=== PATIENT | male | born 1980 | race Two or more races ===

== ENCOUNTER 2022-08-23 22:35 | Inpatient (IN) | payer OTHER ==
[~2022-08-23] VITALS: Ht 182.9 cm; Wt 82.6 kg
[2022-08-23] MEDS ORDERED: LORazepam 0.5 MG TAB PO ONE (23:00)
[2022-08-23] MEDS ORDERED: ACETAMINOPHEN 325 MG TAB PO ONE (23:00)
[2022-08-23] MEDS ORDERED: KETOROLAC TROMETH 30 MG/ML 1ML VIAL IV ONE (23:00)
[2022-08-23] MEDS ORDERED: SODIUM CHLORIDE 0.9% 1,000 ML IV ONE (23:00)
[2022-08-23 23:58] LABS: Basophils # (auto) 0 10 ^3/uL (0-0.2); Basophils % (auto) 0.1 % (0.0-2.0); Eosinophils # (auto) 0 10 ^3/uL (0-0.8); Eosinophils % (auto) 0.3 % (0.0-7.0); Hematocrit 42.4 % (41.0-53.0); Hemoglobin 14.5 g/dL (13.5-17.5); Lymphocytes # (auto) 1.6 10 ^3/uL (0.4-5.4); Lymphocytes % (auto) 10.6 % (10.0-50.0); Mean Corpuscular Hemoglobin 31.1 pg (28.0-32.0); Mean Corpuscular Hgb Conc. 34.2 g/dL (32.0-36.0); Monocytes # (auto) 0.8 10 ^3/uL (0-1.3); Monocytes % (auto) 5.5 % (0.0-12.0); Neutrophils # (auto) 12.9 10 ^3/uL (1.6-8.6); Neutrophils % (auto) 83.5 % (37.0-80.0); Nucleated Red Blood Cells % 0.1 %; Red Blood Cells 4.66 10^6/uL (4.5-5.90); Red Cell Distribution Width 13.1 % (11.8-14.3); White Blood Cell 15.5 10^3/uL (4.4-10.8)
[2022-08-24] MEDS ORDERED: IOHEXOL 350 MG/ML 100ML IJ ONE
[2022-08-24 00:07] LABS: Albumin 3.1 g/dL (3.4-5.0); BUN/Creatinine Ratio 11.9 (10.0-20.0); Calcium 8.7 mg/dL (8.5-10.1); Potassium 3.8 mmol/L (3.5-5.1)
[2022-08-24 00:10] LABS: Bilirubin, Total 0.4 mg/dL (0.2-1.0); Total Protein 6.5 g/dL (6.4-8.2)
[2022-08-24 01:59] LABS: Urine Bacteria NONE SEEN /hpf (None Seen); Urine Blood Negative /uL (Negative); Urine Specific Gravity 1.025 (1.001-1.035); Urine WBC 1 /hpf (0 - 3)
[2022-08-24] MEDS ORDERED: MORPHINE SULFATE 4 MG/ML SYR/VIAL IV ONE (02:15)
[2022-08-24] MEDS ORDERED: ONDANSETRON HCL 4 MG/2 ML VIAL IV ONE (02:15)
[2022-08-24 02:23] LABS: Alcohol, Urine < 3.0 mg/dL (0-10); Amphetamine Screen, Urine NEGATIVE (NEGATIVE); Barbiturate Scree,Urine NEGATIVE (NEGATIVE); Benzodiazephine Screen, Urine NEGATIVE (NEGATIVE); Cannabinoid Screen, Urine NEGATIVE (NEGATIVE); Cocaine Screen, Urine NEGATIVE (NEGATIVE); Opiate Scree,Urine NEGATIVE (NEGATIVE); Phencyclidine Screen, Urine NEGATIVE (NEGATIVE)
[2022-08-24] MEDS ORDERED: MORPHINE SULFATE INJ 2 MG/ml SYRG IV ONE (05:15)
[2022-08-24] MEDS ORDERED: LIDOCAINE 1% HCL (LOCAL ANESTH.) INJ 20ML MDV ID ONE (06:00)
[2022-08-24] MEDS ORDERED: HYDROmorphone HCL 2 MG/ML VL/or syr IV ONE (06:00)
[2022-08-24] MEDS ORDERED: AMOXICILLIN/CLAVUL 875 MG TAB PO ONE (06:00)
[2022-08-24] MEDS: OXYMETAZOLINE HCL 0.05 % NASAL SPRAY 15ML EACHNOSTRI ONE ×2 (06:15→06:27)
[2022-08-24] MEDS ORDERED: BENZOCAINE (DENTAL) 20 % SPRAY 60ML MT ONE (06:15)
[2022-08-24 06:34] LABS: Basophils # (auto) 0 10 ^3/uL (0-0.2); Basophils % (auto) 0.2 % (0.0-2.0); Eosinophils # (auto) 0.1 10 ^3/uL (0-0.8); Eosinophils % (auto) 0.9 % (0.0-7.0); Hemoglobin 14.8 g/dL (13.5-17.5); Lymphocytes # (auto) 2.4 10 ^3/uL (0.4-5.4); Lymphocytes % (auto) 26.4 % (10.0-50.0); Mean Corpuscular Hemoglobin 31.2 pg (28.0-32.0); Mean Corpuscular Hgb Conc. 34.3 g/dL (32.0-36.0); Mean Corpuscular Volume 90.8 fL (80.0-100.0); Monocytes # (auto) 0.9 10 ^3/uL (0-1.3); Monocytes % (auto) 10.1 % (0.0-12.0); Neutrophils # (auto) 5.6 10 ^3/uL (1.6-8.6); Neutrophils % (auto) 62.4 % (37.0-80.0); Nucleated Red Blood Cells % 0.3 %; Red Blood Cells 4.74 10^6/uL (4.5-5.90); Red Cell Distribution Width 12.8 % (11.8-14.3)
[2022-08-24] MEDS: TETANUS-DIPTH-ACEL PERTUSSIS 0.5ML SYR Tdap IM ONE ×2 (08:15→09:53)
[2022-08-24] MEDS: NAPROXEN 500 MG TAB PO SCH ×2 (09:28→21:26)
[2022-08-24] MEDS: PANTOPRAZOLE 40 MG TAB PO SCH (09:29)
[2022-08-24] MEDS: HYDROmorphone HCL 2 MG/ML VL/or syr IV PRN ×3 (09:54→20:46)
[2022-08-24 11:00] VITALS: BP 126/78
[2022-08-24 13:00] VITALS: BP_SYST 121; BP_SYST 126; BP_DIAS 78; BP_DIAS 81
[2022-08-24] MEDS: CYCLOBENZAPRINE HCL 10 MG TAB PO SCH ×2 (14:37→21:26)
[2022-08-24] MEDS: ONDANSETRON HCL 4 MG/2 ML VIAL IV PRN ×2 (14:49→20:44)
[2022-08-24 17:02] VITALS: BP 126/78
[2022-08-24 22:00] VITALS: BP 123/89
[2022-08-25] MEDS: ONDANSETRON HCL 4 MG/2 ML VIAL IV PRN ×3 (00:54→20:06)
[2022-08-25] MEDS: HYDROmorphone HCL 2 MG/ML VL/or syr IV PRN ×4 (00:56→20:08)
[2022-08-25 05:00] VITALS: BP 128/72
[2022-08-25] MEDS: CYCLOBENZAPRINE HCL 10 MG TAB PO SCH ×2 (05:31→21:36)
[2022-08-25 06:35] LABS: Basophils # (auto) 0 10 ^3/uL (0-0.2); Basophils % (auto) 0.1 % (0.0-2.0); Eosinophils # (auto) 0.1 10 ^3/uL (0-0.8); Eosinophils % (auto) 1.5 % (0.0-7.0); Hematocrit 45.7 % (41.0-53.0); Hemoglobin 15.7 g/dL (13.5-17.5); Lymphocytes # (auto) 2.1 10 ^3/uL (0.4-5.4); Lymphocytes % (auto) 22.1 % (10.0-50.0); Mean Corpuscular Hgb Conc. 34.3 g/dL (32.0-36.0); Mean Corpuscular Volume 90.4 fL (80.0-100.0); Monocytes # (auto) 0.8 10 ^3/uL (0-1.3); Monocytes % (auto) 8.4 % (0.0-12.0); Neutrophils # (auto) 6.5 10 ^3/uL (1.6-8.6); Neutrophils % (auto) 67.9 % (37.0-80.0); Nucleated Red Blood Cells % 0.1 %; Red Blood Cells 5.06 10^6/uL (4.5-5.90); Red Cell Distribution Width 12.7 % (11.8-14.3); White Blood Cell 9.5 10^3/uL (4.4-10.8)
[2022-08-25 09:00] VITALS: BP 126/78
[2022-08-25] MEDS: PANTOPRAZOLE 40 MG TAB PO SCH (10:32)
[2022-08-25] MEDS: NAPROXEN 500 MG TAB PO SCH ×2 (10:32→21:36)
[2022-08-25] MEDS ORDERED: MAALOX PLUS or MAALOX 30 ML PO PRN (12:15)
[2022-08-25 13:00] VITALS: BP 126/87
[2022-08-25 17:00] VITALS: BP 130/91
[2022-08-25 22:00] VITALS: BP 142/87
[2022-08-26] MEDS: ONDANSETRON HCL 4 MG/2 ML VIAL IV PRN ×3 (00:31→14:45)
[2022-08-26] MEDS: HYDROmorphone HCL 2 MG/ML VL/or syr IV PRN ×3 (00:31→14:47)
[2022-08-26 08:00] VITALS: BP 130/84
[2022-08-26 09:38] VITALS: BP 130/84
[2022-08-26] MEDS ORDERED: ENOXAPARIN SOD 40 MG/0.4 ML SYRINGE SC SCH (10:00)
[2022-08-26] MEDS: NAPROXEN 500 MG TAB PO SCH (10:30)
[2022-08-26] MEDS: PANTOPRAZOLE 40 MG TAB PO SCH (10:30)
[2022-08-26] MEDS: CYCLOBENZAPRINE HCL 10 MG TAB PO SCH (10:31)
[2022-08-26 13:35] VITALS: BP 132/92
[2022-08-26] MEDS ORDERED: NAP500T PO (14:57)
[2022-08-26 16:54] VITALS: BP 116/86
[2022-08-26 18:45] VITALS: BP 116/86
== END 2022-08-26 21:40 | DRG 184 ==
LOC: EDBD 22:35 → ER 22:38 → EEVIPCON 22:38 → OVERFLOW 08-24 06:12 → WEST WING 08-24 11:07
PROVIDERS: ADMIT Internal Medicine; ATTEND Internal Medicine
DX: S22.42XA Multiple fractures of ribs, left side, initial encounter for closed fracture (principal); S32.019A Unspecified fracture of first lumbar vertebra, initial encounter for closed fracture; S32.039A Unspecified fracture of third lumbar vertebra, initial encounter for closed fracture; S62.91XA Unspecified fracture of right hand, initial encounter for closed fracture; S02.2XXA Fracture of nasal bones, initial encounter for closed fracture; T14.8XXA Other injury of unspecified body region, initial encounter; Z88.0 Allergy status to penicillin; Z79.899 Other long term (current) drug therapy; Y08.89XA Assault by other specified means, initial encounter; Y93.89 Activity, other specified; Y92.89 Other specified places as the place of occurrence of the external cause; Y99.8 Other external cause status
CPT/HCPCS: 36415; 70450; 70486; 71260; 72125; 72128; 72131; 73030; 73100; 73120; 74177; 80053; 80307; 80320; 81001; 83690; 83880; 84484; 85025; 86850; 86900; 86901; 90715; 93005; 96361; 96374; G0378; J1885; J2001; J2405